=== PATIENT | male | born 1965 | race Caucasian/White ===

== ENCOUNTER 2024-10-16 17:06 | Inpatient (IN) ==
[2024-10-16] MEDS ORDERED: IOPAMIDOL 100 ML BOTTLE IV ONE (17:07)
[2024-10-16] MEDS: ONDANSETRON 4 MG/2 ML VIAL IV ONE ×2 (18:02→21:04)
[2024-10-16] MEDS: LACTATED RINGERS 1,000 ML IV ONE (18:02)
[2024-10-16 18:26] LABS: Basophils # (Auto) 0.02 K/mcL (0.00-0.30); Basophils % (Auto) 0.2 % (0.0-2.0); Eosinophils # (Auto) 0.03 K/mcL (0.00-0.70); Eosinophils % (Auto) 0.3 % (0.0-7.0); Hematocrit 46.4 % (40.1-51.0); Hemoglobin 15.3 g/dL (13.7-17.5); Lymphocytes # (Auto) 0.42 K/mcL (1.50-4.80); Lymphocytes % (Auto) 4.2 % (15.5-49.0); Mean Cell Volume 86.9 fL (80.0-100.0); Mean Platelet Volume 10.1 fL (8.8-12.5); Monocytes # (Auto) 0.24 K/mcL (0.10-0.90); Monocytes % (Auto) 2.4 % (1.0-12.0); Neutrophils % (Auto) 92.8 % (38.0-78.0); Platelet Count 168 K/mcL (140-440); RBC 5.34 M/mcL (4.63-6.08); Red Cell Distribution Width 12.4 % (11.5-14.5)
[2024-10-16 18:33] LABS: ALT/SGPT 19 U/L (<40); AST/SGOT 28 U/L (<40); Albumin 4.4 gm/dL (3.2-5.2); Albumin/Globulin Ratio 1.6 (1.0-2.3); Alkaline Phosphatase 101 U/L (39-117); Bilirubin,Total 0.7 mg/dL (0.1-1.0); Blood Urea Nitrogen 22 mg/dL (6-20); Calcium 9.8 mg/dL (8.6-10.4); Carbon Dioxide 26 mmol/L (22-30); Chloride 98 mmol/L (96-108); Globulin 2.7 gm/dL (2.2-3.7); Glomerular Filtration Rate 98; Glucose 109 mg/dL (70-105); Potassium 3.8 mmol/L (3.3-5.1); Sodium 138 mmol/L (133-145)
[2024-10-16] MEDS: ASPIRIN 81 MG TAB.CHEW CHEWED ONE (19:40)
[2024-10-16] MEDS: ASPIRIN 325 MG ENTERIC COATED TABLET PO ONE (19:46)
[2024-10-16 20:34] LABS: Prothrombin Time 13.6 sec (11.9-14.5)
[2024-10-16] MEDS: 0.9 % SODIUM CHLORIDE 1,000 ML IV ONE (21:43)
[2024-10-16 21:59] LABS: Appearance,Urine Clear (Clear); Bilirubin,Urine Negative (Negative); Color,Urine Yellow; Glucose,Urine (UA) Negative (Negative); Ketones,Urine 15 mg/dL (Negative); Leukocyte Esterase,Urine Negative /uL (Negative); Nitrate,Urine Negative (Negative); Protein,Urine Negative (Negative); Specific Gravity,Urine 1.015 (1.000-1.035); Urine Blood Negative ery/mcL (Negative); Urobilinogen,Urine Normal
[2024-10-16] MEDS ORDERED: oxyCODONE IR 5 MG TABLET PO PRN (22:13)
[2024-10-16] MEDS ORDERED: ONDANSETRON 4 MG ODT TABLET SL PRN (22:13)
[2024-10-16] MEDS ORDERED: CALCIUM CARBONATE 500 MG TAB.CHEW CHEWED PRN (22:13)
[2024-10-16] MEDS ORDERED: MAG HYDROX/AL HYDROX/SIMETH 30 ML ORAL.SUSP PO PRN (22:13)
[2024-10-16] MEDS ORDERED: MAGNESIUM HYDROXIDE 30 ML ORAL.SUSP PO PRN (22:13)
[2024-10-16] MEDS ORDERED: ONDANSETRON 4 MG/2 ML VIAL IV PRN (22:13)
[2024-10-16] MEDS: 0.9 % SODIUM CHLORIDE 1,000 ML IV SCH (22:58)
[2024-10-16] MEDS: ATORVASTATIN 40 MG TABLET PO SCH (23:02)
[2024-10-16] MEDS: 0.9 % SODIUM CHLORIDE 10 ML SYRINGE IV SCH (23:21)
[2024-10-16] MEDS: DOCUSATE SODIUM 100 MG CAPSULE PO SCH (23:21)
[2024-10-16] MEDS: ATORVASTATIN 40 MG TABLET ONE (23:22)
[2024-10-16] MEDS: SENNOSIDES 1 TABLET PO SCH (23:22)
[2024-10-17 05:58] LABS: Hemoglobin A1C 5.8 % Hgb (4.0-6.0)
[2024-10-17] MEDS: ASPIRIN 81 MG TAB.CHEW CHEWED SCH (08:52)
[2024-10-17] MEDS: ENOXAPARIN 40 MG/0.4 ML SYRINGE SQ SCH (08:52)
[2024-10-17] MEDS ORDERED: ASPIRIN 81 MG TAB.CHEW CHEWED SCH (09:00)
[2024-10-17] MEDS: METOPROLOL SUCCINATE 25 MG TAB.XL.24H PO SCH (13:30)
[2024-10-20] MEDS: PNEUMOCOCCAL 23-VAL P-SAC VAC 0.5 ML SYRINGE IM ONE (09:30)
[2024-10-20] MEDS: FLU VACC TS2024-25(6MOS UP)/PF 45 MCG/0.5 ML SYRINGE IM ONE (09:32)
[2024-10-21] MEDS ORDERED: hydrALAZINE 20 MG/ML VIAL IV PRN (16:38)
[2024-10-21] MEDS: ACETAMINOPHEN 325 MG TABLET PO PRN (21:29)
[2024-10-22 07:35] VITALS: TEMP 98.2; O2SAT 98
[2024-10-22] MEDS: HYDROCHLOROTHIAZIDE 12.5 MG CAPSULE PO SCH (09:08)
[2024-10-22] MEDS: LISINOPRIL 10 MG TABLET PO SCH (09:08)
== END 2024-10-22 09:50 | DRG 65 ==
LOC: ED 17:06 → ICU 21:59 → MEDSUR 10-17 14:15
PROVIDERS: ADMIT Internal Medicine; ATTEND Internal Medicine